=== PATIENT | male | born 1980 | race Caucasian/White ===

== ENCOUNTER 2021-07-26 09:01 | Emergency (ER) | payer MEDICAID, SELFPAY ==
[2021-07-26] VITALS (8 sets, daily range): BP systolic 154–161; BP diastolic 108–119; PULSE 107–120; RESP 12–21; TEMP 36.8; O2SAT 94–98
--- NOTE | 2021-07-26 09:00 | RT.EKG_ITS ---
APPROVED REPORT Exam: Resting ECG Reason for Exam: left arm pain Patient Location: E HR:109 bpm ECG Measurements Heart Rate 109 AXIS IL 165 P 54 QRSd 89 QRS -20 QT 314 T 33 QTc 423 Conclusion Sinus tachycardia...rate> 99 Inferior infarct, old...Q >35mS, II III aVF Consider anteroseptal infarct...Q >30mS, dimin R, V1-V2. Sinus. Inferior Q waves. No STEMI. I have reviewed and interpreted ECG and agree with software generated interpretation.
--- NOTE | 2021-07-26 09:16 | ED.GENADUL_ITS ---
Discharge Plan Disposition Patient Disposition: HOME Condition: Stable Discharge Details Clinical Impression: Cervical radiculopathy, Peripheral neuropathy Primary Care Provider: None,None ED Provider: Yudi Esquivel Home Meds and New Rx's Prescriptions: New prednisone 20 mg tablet See Rx Instructions .ROUTE .COMPLEX Qty: 18 RF: 0 methocarbamol 500 mg tablet 500 mg PO Q6H PRN (Reason: muscle spasm) Qty: 14 RF: 0 ibuprofen 600 mg tablet 600 mg PO Q6H PRNQty: 20 RF: 0 Discharge Instructions Instructions: Peripheral Neuropathy (ED), Cervical Radiculopathy (ED), Alcohol Use Disorder (ED) Additional Instructions: Apply ice to the affected area several times daily for 20 minutes at a time. Prescriptions for steroids, muscle relaxers and anti-inflammatories have been sent electronically to your pharmacy. You have been placed on care management list to arrange for a follow-up appoint ment with a primary care doctor to establish care, for recheck of your blood pressure, and for reevaluation of your neck arm pain. You can follow-up with orthopedics if your shoulder pain does not improve for further evaluation. You can talk to your doctor for referral to a head tennis coach or rehab if you would like assistance with stopping alcohol use safely. Return immediately to the emergency department if you develop any worsening or new concerning symptoms. Referrals: Von Treviño MD [ [facility] STAFF PHYSICIAN] - Discharge Data Discharge Date/Time-TO BE ENTERED AT DEPARTURE: 07/26/21 10:53 Discharge Physician: Yudi Esquivel Medical Decision Making 41-year-old male with a history of hypertension and daily alcohol use presents with pain overlying his left scapula, under his left arm with radiation down to his left hand with occasional associated tingling in left second through fourth fingers. Pain is worse with movement of his head and arm and when lying on his side. EKG done on arrival due to lack of reported injury and notes a rate of 109, sinus, inferior Q waves but no STEMI and nondiagnostic. 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 Pain in his left scapula, shoulder and arm are reproducible with movement of his head and arm abduction. Positive Spurling's test, Tinel's and Phalen sign. He is neurovascularly intact. Suspect this is most likely cervical radiculopathy or peripheral neuropathy. History and presentation does not appear c/w ACS, PE, dissection. Patient given a dose of IV Toradol and p.o. prednisone. Prescriptions for muscle laxatives and steroids sent electronically to his pharmacy. Patient also given orthopedic follow-up information. Patient placed on care management list to arrange for follow-up appointment with a PCP and to establish care. Usual and customary return precautions given prior to discharge. Medical Records Medical records reviewed: Yes I reviewed the patient's medical records. Lab Data Labs: ECG Data Attestation: I personally reviewed and interpreted this ECG (s) as follows: Interpretation: rate of 109, sinus, inferior Q waves, no stemi. OR 165, QRS 89, QTc 423. HPI General Mode of arrival: ambulatory . Date/Time Provider Initiated Documentation: 07/26/21 09:14 . Limitations to Documentation: no limitations . Information obtained by: patient . HPI Narrative: Patient is a 41-year-old male who presents with 1 week of left scapula, shoulder, upper arm, wrist and hand pain. He states the pain is worse with movement of his head and arm. He states he has increased pain when laying on his left or right side at night making it difficult to sleep. He states he does have some improvement when lying supine. 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 He does admit to intermittent tingling in his second through fourth fingers. He denies any significant neck pain, fever, cough, chest pain, shortness of breath, abdominal pain, nausea, vomiting or dizziness. He is a daily drinker and can drink between 2-12 beers daily. Related Data Home Medications Medication Instructions Recorded Confirmed ibuprofen 600 mg PO Q6H PRN #20 tab 07/26/21 methocarbamol 500 mg PO Q6H PRN #14 tab 07/26/21 prednisone See Rx Instructions .ROUTE 07/26/21 .COMPLEX #18 tab Previous Rx's Medication Instructions Recorded ibuprofen 600 mg PO Q6H PRN #20 tab 07/26/21 methocarbamol 500 mg PO Q6H PRN #14 tab 07/26/21 prednisone See Rx Instructions .ROUTE 07/26/21 .COMPLEX #18 tab Allergies Allergy/AdvReac Type Severity Reaction Status Date / Time No Known Allergies Allergy Unverified 07/26/21 09:14 General Stated Complaint: GenMedical IVON: 2 Review of Systems All systems reviewed & are unremarkable except as noted in HPI and below Constitutional Constitutional: Reports as per HPI, Denies chills and Denies fever(s) Eyes Eyes: Denies blurry vision ENT Ears, Nose, Mouth, and Throat: Denies dizziness, Denies sore throat and Denies throat swelling Cardiovascular Cardiovascular: Denies chest pain and Denies dyspnea Respiratory Respiratory: Denies cough and Denies dyspnea Gastrointestinal Gastrointestinal: Denies abdominal pain, Denies diarrhea and Denies vomiting Genitourinary Genitourinary: Denies hematuria and Denies dysuria Musculoskeletal Musculoskeletal: Denies back pain and Denies numbness Comments: L scapula, upper arm pain, wrist pain Integumentary/Breasts Skin/Breast: Denies lesions and Denies rash Neurologic Neurologic: Denies dizziness, Denies localized weakness and Denies numbness Allergic/Immunologic Allergic/Immunologic: Denies throat swelling PFS Active Problem List (Updated 07/26/21 @ 10:29 by Yudi Esquivel DO) Cervical radiculopathy (Acute) Peripheral neuropathy (Acute) Medical History (Updated 07/26/21 @ 10:29 by Yudi Esquivel DO) HTN (hypertension) Surgical History (Updated 07/26/21 @ 10:06 by Yudi Esquivel DO) No significant past surgical history Social History Smoking/Tobacco Use Status: Never Smoking risk assessment performed?: Yes Drug use: Daily Substance use type: marijuana Exam Const General: cooperative and no acute distress HENMT Head: normal to inspection Face and sinus: normal facial exam Eyes General: appearance normal, both eyes and all related structures EOM: EOM intact bilaterally Neck Neck: normal visual inspection and No submandibular swelling Lymphatic: no lymphadenopathy noted Chest Chest: normal inspection of the chest and no tenderness Resp Effort & Inspection: normal respiratory effort and able to speak in complete sentences Auscultation: clear to auscultation bilaterally Cardio Rate: regular rate Rhythm: regular rhythm GI Inspection: normal to inspection Palpation: soft, not firm, not rigid and nontender Auscultation: normal bowel sounds Back/Spine/Pelvis Thoracic/Lumbar Spine: thoracic and lumbar spine normal to inspection Skin General skin exam: no rashes or lesions noted Neuro General: patient alert, patient awake and patient oriented x3 Cognition: normal cognition Speech: speech normal Motor: muscle tone normal throughout Sensory Exam: no sensory deficits noted Extrem General: normal to inspection, full ROM, capillary refill normal, no calf tenderness bilaterally and no edema Other: Pain in left scapula and upper arm reproducible with left head movement and abduction of his arm. There is no tenderness overlying scapula or left shoulder, upper arm, elbow, forearm or wrist Positive Spurling's test. Negative Tinel's and Phalen's sign. Left radial and ulnar pulses intact. Normal motor/sensory nerve function along the radial/median and ulnar nerve distribution. Psych Appearance: grossly normal Mental Status: mental status grossly normal Speech and Movement: speech and movement normal Affect: normal affect Course Vital Signs Vital signs: Vital Signs Temperature 98.2 F 07/26/21 09:09 Pulse 109 H 07/26/21 09:09 Respiratory Rate 16 07/26/21 09:09 Blood Pressure 157/119 H 07/26/21 09:09 Pulse Oximetry 98 07/26/21 09:09 Temperature 98.2 F 07/26/21 09:09 Temperature Source Skin 07/26/21 09:09 Pulse 109 H 07/26/21 09:09 Respiratory Rate 16 07/26/21 09:09 Respiratory Effort Non-Labored 07/26/21 09:09 Blood Pressure 157/119 H 07/26/21 09:09 Blood Pressure Position Supine 07/26/21 09:09 Pulse Oximetry 98 07/26/21 09:09 Oxygen Delivery Method Room Air 07/26/21 09:09 Oxygen Flow Rate 0 07/26/21 09:09 Pain Level 2 07/26/21 09:09 PAWSS Have you Been Recently Intoxicated or Drunk Within the Last 30 days?: No Have you Ever Experienced Previous Episodes of Alcohol Withdrawal?: No Have you ever Experienced Withdrawal Seizures?: No Have you ever Experienced Delirium Tremens(DT)s?: No Have you ever undergone Alcohol Rehabilitation Treatment (i.e, inpt ot outpatient treatment programs)?: No Have you ever Experienced Blackouts?: No Have you ever Combined Alcohol with other Downers within the last 90 days?: No Have you ever Combined Alcohol with any other Substance of Abuse during the last 90 days?: No Positive Blood Alcohol level on Presentation? [PCS.BAL]: No Result: 0
[2021-07-26] MEDS: Ketorolac 60 MG/2 ML VIAL IM (10:02)
[2021-07-26] MEDS: predniSONE 20 MG TAB 60 MG PO (10:02)
--- NOTE | 2021-07-26 10:28 | NUR.NOTE ---
Nursing Note: Referral given to Care Management for follow up shoulder pain, establish care within 1 week. Darlene Moreno
--- NOTE | 2021-07-27 09:23 | NUR.NOTE ---
Nursing Note: Referral given to Care Management for arm pain, establish care with new PCP within 1 week. Darlene Moreno
--- NOTE | 2021-07-27 11:24 | CMACTNOTE_ITS ---
- If Service Date Differs Date of service: 07/27/21 Time of Service: 11:24 Care Management Activity Note Nadir is seen in the ED for cervical radiculopathy. At the request of ED provider, TOMI coordinates a referral to Carrington Vogel MD, of [facility], on-call provider, to assist Nadir in obtaining a follow up appointment and in establishing care with a PCP.
== END 2021-07-26 10:53 | disposition home or self-care (01) ==
PROVIDERS: Emergency Provider Physician Assistant
DX: M54.12 Radiculopathy, cervical region (principal); G62.9 Polyneuropathy, unspecified; M79.602 Pain in left arm
CPT/HCPCS: 36415; 93005; 96372; 99284; 93010; 99283; J1885; J7512

== ENCOUNTER 2022-01-27 16:31 | Emergency (ER) | payer MEDICAID, SELFPAY ==
[2022-01-27] VITALS (61 sets, daily range): BP systolic 134–162; BP diastolic 98–115; PULSE 90–106; RESP 16; TEMP 36.8; O2SAT 92–99
--- NOTE | 2022-01-27 17:15 | RT.EKG_ITS ---
APPROVED REPORT Exam: Resting ECG Reason for Exam: tachy Patient Location: E HR:104 bpm ECG Measurements Heart Rate 104 AXIS [place] 175 P 49 QRSd 96 QRS -30 QT 359 T 27 QTc 473 Conclusion Sinus tachycardia...rate> 99 Inferior infarct, old...Q >35mS, II III aVF Anterior infarct, old...Q >40mS, abnormal ST-T, V2-V5. Sinus. No STEMI. I have reviewed and interpreted ECG and agree with software generated interpretation.
[2022-01-27] MEDS: chlordiazePOXIDE 25 MG CAP 50 MG PO ×2 (17:55→19:50)
[2022-01-27 17:57] LABS: Abs Immature Grans 0.03 10^3/uL (0.0-0.06); Absolute Basophil Count 0.06 10^3/uL (0.0-0.2); Absolute Eosinophil Count 0.02 10^3/uL (0.0-0.7); Absolute Lymphocyte Count 0.88 10^3/uL (1.2-3.4); Absolute Monocyte Count 0.75 10^3/uL (0.1-0.8); Absolute Neutrophil Count 3.81 10^3/uL (1.2-6.7); Basophils % 1.1; Eosinophils % 0.4; HCT 45.9 % (40.0-50.0); HGB 16.2 g/dL (13.5-17.5); Immature Grans % 0.5; Lymphocytes % 15.9; MCH 31.1 pg (27.0-33.0); MCHC 35.3 % (32.0-36.0); MCV 88 fL (80-95); MPV 9.1 fL (8.0-11.0); Monocytes % 13.5; Neutrophils % 68.6; Platelet Count 188 10^3/uL (130-400); RBC 5.21 10^6/uL (4.36-5.78); RDW 11.1 % (11.8-14.1); RDW-SD 35.6 fL; WBC 5.55 10^3/uL (4.4-10.8)
[2022-01-27 18:12] LABS: ALT 125 U/L (16-63); AST 96 U/L (15-37); Albumin 4.1 g/dL (3.4-5.0); Alkaline Phosphatase 67 U/L (46-116); Anion Gap 9.6 mmol/L (3-11); BUN 7 mg/dL (7-18); Bilirubin, Total 1.4 mg/dL (0.2-1.0); CO2 27.4 mmol/L (21.0-32.0); Calcium 9.4 mg/dL (8.5-10.1); Chloride 96 mmol/L (98-107); Glucose 105 mg/dL (74-106); Lipase 237 U/L (73-393); Magnesium 2.5 mg/dL (1.8-2.4); Potassium 3.7 mmol/L (3.5-5.1); Sodium 133 mmol/L (136-145); Total Protein 8.2 g/dL (6.4-8.2)
[2022-01-27 18:26] LABS: ETHANOL BLOOD < 3.0 mg/dL (<10)
[2022-01-27] MEDS: Normal Saline 1,000 ML 1000 ML IV (18:40)
--- NOTE | 2022-01-27 19:22 | W.ED.GENAD ---
Discharge Plan Disposition Patient Disposition: HOME Condition: Stable Discharge Details Clinical Impression: Alcohol abuse, Elevated transaminase level, Alcohol withdrawal syndrome Primary Care Provider: None,None ED Provider: Mattie Palmer Home Meds and New Rx's Prescriptions: New chlordiazepoxide HCl 25 mg capsule 25 mg PO .q6p PRN (Reason: alcohol withdrawal) Qty: 16 0RF Discharge Instructions Instructions: Abuse of Alcohol (ED) Additional Instructions: Take the Librium, 25 to 50 mg as needed for alcohol withdrawal Do not combine alcohol with Librium this can make you very sick He should not drive your vehicle for 8 hours after taking this medication Please call your doctor and let them know that you are attempting alcohol cessation Am attaching information for [facility] Please return immediately should he have new or worsening symptoms Referrals: [facility] [Outside] Discharge Data Discharge Date/Time-TO BE ENTERED AT DEPARTURE: 01/27/22 19:49 Medical Decision Making Patient is alert and oriented, his CIWA score is 10 he is comfortable in the room and has an excellent support system including his His preference is to be discharged home on anxiolysis for alcohol withdrawal To the recovery was involved and will call him tomorrow His labs are reviewed including mild elevation in his LFTs He is in no discomfort We discussed admission versus discharge home and I do not think it is unreasonable to do a trial of outpatient alcohol withdrawal treatment I will place patient on care management list to establish care with PCP No suicidal or homicidal ideation Medical Records Medical records reviewed: Yes I reviewed the patient's medical records. Lab Data Lab results reviewed: Yes I reviewed the patient's lab results. HPI General Date/Time Provider Initiated Documentation: 01/27/22 16:35. HPI Narrative: This 41-year-old male presents for report of concern for alcohol withdrawal. Patient states that his last drink was approximately 48 hours ago. He typically consumes between 10-12 8 ounce beers daily. He states he has been doing this for the past 20 years. Denies prior cessation of alcohol in the past. States he is like to stop drinking. He has not had a drink since 48 hours ago. He today he was concerned because he was quite anxious and had auditory hallucinations with pink slip playing in the background at 3:00. Patient denies any chest pain or shortness of breath. He denies any dizziness or weakness. He denies any nausea or vomiting. He feels slightly tremulous. Denies history of seizures in the past. Denies any calf pain or swelling. Denies any current auditory or visual hallucinations. Has strong support system with a friend who will sponsor him. Denies any additional illicit drug use. Denies chest pain or shortness of breath. Denies suicidal or homicidal ideation. Related Data Home Medications Medication Instructions Recorded Confirmed chlordiazepoxide HCl 25 mg capsule 25 mg PO .q6p PRN alcohol 01/27/22 withdrawal #16 caps Previous Rx's Medication Instructions Recorded chlordiazepoxide HCl 25 mg capsule 25 mg PO .q6p PRN alcohol 01/27/22 withdrawal #16 caps Allergies Allergy/AdvReac Type Severity Reaction Status Date / Time No Known Allergies Allergy Unverified 01/27/22 16:40 General Stated Complaint: ETOHWithdr IVON: 3 Review of Systems All systems reviewed & are unremarkable except as noted in HPI and below PFSH All Active Problems (Updated 01/27/22 @ 21:43 by FIGUEROA Moore) Cervical radiculopathy (Acute) Peripheral neuropathy (Acute) Alcohol abuse (Chronic) Elevated transaminase level (Acute) Alcohol withdrawal syndrome (Acute) Medical History (Updated 01/27/22 @ 21:43 by FIGUEROA Moore) HTN (hypertension) Surgical History (Updated 07/26/21 @ 10:06 by Yudi Esquivel DO) No significant past surgical history Social History Smoking/Tobacco Use Status: Never Smoking risk assessment performed?: Yes Alcohol Intake: former Drug use: Daily Substance use type: marijuana Details: pt starting detoxing from alochol 50 hours ago Do you feel safe at home: Yes Do you feel safe in your relationship?: Yes Exam Const General: cooperative, comfortable and no acute distress Orientation: alert and oriented x3 HENMT Head: normal to inspection Other: no tongue fasciculations no visible evidence of trauma Eyes Pupils: PERRL EOM: No nystagmus Resp Effort & Inspection: normal respiratory effort Auscultation: clear to auscultation bilaterally Cardio Rate: tachycardic Rhythm: regular rhythm GI Other: Nontender abdominal exam Skin General skin exam: no rashes or lesions noted Neuro General: patient alert and patient oriented x3 Cranial Nerves: tongue midline and no nystagmus Other: Mild tremor noted Psych Appearance: well kempt Mental Status: mental status grossly normal Speech and Movement: speech and movement normal Affect: normal affect Attitude: cooperative Thought Process: normal Thought Content: normal Course Vital Signs Vital signs: Vital Signs Temperature 36.8 C 01/27/22 16:33 Pulse 103 H 01/27/22 16:33 Respiratory Rate 16 01/27/22 16:33 Blood Pressure 162/115 H 01/27/22 16:33 Pulse Oximetry 96 01/27/22 16:33 Temperature 36.8 C 01/27/22 16:33 Pulse 90 01/27/22 19:16 Respiratory Rate 16 01/27/22 16:33 Respiratory Effort 01/27/22 16:41 Respiratory Pattern Normal 01/27/22 16:41 Blood Pressure 149/99 H 01/27/22 19:16 Pulse Oximetry 93 01/27/22 18:54 Oxygen Delivery Method Room Air 01/27/22 17:54 Oxygen Flow Rate 0 01/27/22 17:54 Lab/Test Results Lab/Test Results: Laboratory Tests Range/Units 01/27/22 01/27/22 17:51 17:51 WBC (4.4-10.8) 10^3/uL 5.55 RBC (4.36-5.78) 10^6/uL 5.21 Hgb (13.5-17.5) g/dL 16.2 Hct (40.0-50.0) % 45.9 MCV (80-95) fL 88 MCH (27.0-33.0) pg 31.1 MCHC (32.0-36.0) % 35.3 RDW (11.8-14.1) % 11.1 L Plt Count (130-400) 10^3/uL 188 MPV (8.0-11.0) fL 9.1 Immature Gran % 0.5 Neutrophils % 68.6 Lymphocytes % 15.9 Monocytes % 13.5 Eosinophils % 0.4 Basophils % 1.1 Nucleated RBC % (0.0-0.3) % 0.0 Absolute Neutrophils (1.2-6.7) 10^3/uL 3.81 Absolute Lymphocytes (1.2-3.4) 10^3/uL 0.88 L Absolute Monocytes (0.1-0.8) 10^3/uL 0.75 Absolute Eosinophils (0.0-0.7) 10^3/uL 0.02 Absolute Basophils (0.0-0.2) 10^3/uL 0.06 Sodium (136-145) mmol/L 133 L Potassium (3.5-5.1) mmol/L 3.7 Chloride (98-107) mmol/L 96 L Carbon Dioxide (21.0-32.0) mmol/L 27.4 Anion Gap (3-11) mmol/L 9.6 BUN (7-18) mg/dL 7 Creatinine (0.70-1.30) mg/dL 1.0 Estimated GFR/1.73 m2 (mL/min/1.73m2) >= 60.00 Glucose (74-106) mg/dL 105 Calcium (8.5-10.1) mg/dL 9.4 Magnesium (1.8-2.4) mg/dL 2.5 H Total Bilirubin (0.2-1.0) mg/dL 1.4 H AST (15-37) U/L 96 H ALT (16-63) U/L 125 H Alkaline Phosphatase (46-116) U/L 67 Total Protein (6.4-8.2) g/dL 8.2 Albumin (3.4-5.0) g/dL 4.1 Lipase (73-393) U/L 237 Ethyl Alcohol (<10) mg/dL < 3.0 PAWSS Pt Consumed Any Amount of Alcohol Within the Last 30 days OR had positive MARIELOS Upon Admission: Yes Have you Been Recently Intoxicated or Drunk Within the Last 30 days?: No Have you Ever Experienced Previous Episodes of Alcohol Withdrawal?: No Have you ever Experienced Withdrawal Seizures?: No Have you ever Experienced Delirium Tremens(DT)s?: No Have you ever undergone Alcohol Rehabilitation Treatment (i.e, inpt ot outpatient treatment programs)?: No Have you ever Experienced Blackouts?: No Have you ever Combined Alcohol with other Downers within the last 90 days?: No Have you ever Combined Alcohol with any other Substance of Abuse during the last 90 days?: No Positive Blood Alcohol level on Presentation? [PCS.BAL]: No Evidence of Increased Autonomic Activity (i.e. HR>120, tremor, sweating, agitation, nausea)?: Yes Result: 1
--- NOTE | 2022-01-27 22:12 | NUR.NOTE ---
Referral to Care Management to establish pcp routinely.Nursing Note:
== END 2022-01-27 19:49 | disposition home or self-care (01) ==
PROVIDERS: Emergency Provider Physician Assistant
DX: F10.239 Alcohol dependence with withdrawal, unspecified (principal); R74.01 Elevation of levels of liver transaminase levels; I10 Essential (primary) hypertension
CPT/HCPCS: 80053; 83690; 93005; 96360; 99284; 80320; 83605; 83735; 85025; 93010; 99283

== ENCOUNTER 2023-02-01 10:58 | Emergency (ER) | payer MEDICAID, SELFPAY ==
[2023-02-01 11:04] VITALS: BP 141/95; PULSE 68; RESP 15; TEMP 36.5; O2SAT 99
--- NOTE | 2023-02-01 11:15 | DI.RAD_ITS ---
Exam(s) XR RIBS RT W PA LAT CHEST EXAM: XR RIBS RT W PA LAT CHEST CLINICAL HISTORY: fall from height TECHNIQUE: 2D digital imaging was performed. COMPARISON: No exams were available for comparison FINDINGS: Total 7 views: RIBS 5 VIEWS- there are no obvious right rib fractures There are no obvious acute rib fractures evident. No lytic rib lesions identified. CXR- 2 VIEWS: No lung contusion or pneumothorax. There is no pleural effusion evident. Heart size is normal and there is no significant mediastinal widening. IMPRESSION: 1. No obvious right rib fractures evident. Also no significant rib lesions. 2. No ipsilateral lung nor pleural abnormality evident. No pneumothorax. DATA REPOSITORY: RADIATION DOSE DELIVERED:
--- NOTE | 2023-02-01 11:15 | DI.RAD_ITS ---
Exam(s) XR HIP RT COMPLETE AP PELVIS EXAM: XR HIP RT COMPLETE AP PELVIS CLINICAL HISTORY: fall from height. TECHNIQUE: 2D digital imaging was performed. COMPARISON: No exams were available for comparison FINDINGS: Two views. No evidence of pelvic nor hip fracture. Mild degenerative changes in the right hip noted. Bone dens ity normal. No osseous lesions. IMPRESSION: No fracture evident. DATA REPOSITORY: RADIATION DOSE DELIVERED:
--- NOTE | 2023-02-01 11:25 | DI.RAD_ITS ---
Exam(s) XR CERVICAL SP MONTALVO TRAUMA 2-3V EXAM: XR CERVICAL SP MONTALVO TRAUMA 2-3V CLINICAL HISTORY: fall from height. TECHNIQUE: 2D digital imaging was performed. COMPARISON: No exams were available for comparison FINDINGS: 3 views No evidence of fracture, listhesis, nor offset of the spinal laminar line. No cervical ribs. No sig nificant disc space narrowing. Facets unremarkable. No prevertebral soft tissue swelling. Bone den sity normal. No osseous lesions IMPRESSION: No significant radiograph findings on these three views of the cervical spine. DATA REPOSITORY: RADIATION DOSE DELIVERED:
--- NOTE | 2023-02-01 12:13 | DI.RAD_ITS ---
Exam(s) XR WRIST RT COMPLETE EXAM: XR WRIST RT COMPLETE CLINICAL HISTORY: fall trauma. TECHNIQUE: 2D digital imaging was performed. COMPARISON: No exams were available for comparison FINDINGS: 3 views There appears to be a subtle fracture line in the distal radius at its medial border, at the level th e radiocarpal joint. No other fractures identified in the distal radius and ulna and ulnar styloid i s intact. No significant ulnar variance. Scaphoid and scapholunate distance are normal. IMPRESSION: Subtle nondisplaced fracture at the distal medial radius. DATA REPOSITORY: RADIATION DOSE DELIVERED:
--- NOTE | 2023-02-01 12:15 | DI.RAD_ITS ---
Exam(s) XR THORACIC SPINE COMPLETE EXAM: XR THORACIC SPINE COMPLETE CLINICAL HISTORY: fall from height. TECHNIQUE: 2D digital imaging was performed. COMPARISON: No exams were available for comparison FINDINGS: 3 views No evidence of obvious compression fracture or listhesis. Mild disc space narrowing at T7-8 level noted. There is no abnormal widening of the paraspinal lines . No scoliosis. IMPRESSION: No fractures evident. DATA REPOSITORY: RADIATION DOSE DELIVERED:
--- NOTE | 2023-02-01 12:15 | ED.GENADUL_ITS ---
Discharge Plan Disposition Patient Disposition: Home Discharge Details Clinical Impression: Distal radial fracture, Chest wall contusion, Contusion of right shoulder, Contusion of hip, right Primary Care Provider: Unknown,Unknown ED Provider: Justino Pierre Home Meds and New Rx's Prescriptions: Discontinued chlordiazepoxide HCl 25 mg capsule 25 mg PO .q6p PRN (Reason: alcohol withdrawal) Qty: 16 0RF Patient Comments: No longer taking 02/01/23 CT Discharge Instructions Instructions: Wrist Fracture in Adults (ED) Referrals: Von Treviño MD [ [facility] STAFF PHYSICIAN] - Discharge Data Discharge Date/Time-TO BE ENTERED AT DEPARTURE: 02/01/23 13:01 Medical Decision Making Patient with moderate energy mechanism trauma. Now with an obvious deformity to the right wrist likely broken. No significant head injury is evident in the patient's not on blood thinners GCS is 15 CT scan not indicated. Will obtain plain film imaging of the other areas of pain to rule out fracture dislocations although unlikely. Rib fracture is possible. Will reassess after plain films have been performed Differential Diagnosis Differential Diagnosis: Wrist fracture/rib fracture HPI General Date/Time Provider Initiated Documentation: 02/01/23 11:22 . HPI Narrative: Patient had a mechanical fall from ladder onto his right side no head injury. Presents emergency department complaining of center neck pain center back pain and right shoulder pain right wrist pain and right hip pain. No loss of consciousness patient's not on blood thinners. This occurred just prior to arrival. Patient states he has significant pain of the left wrist with difficulty flexion and extension. He ambulated to the emergency department under his own power. No open wounds no lacerations Related Data Allergies Allergy/AdvReac Type Severity Reaction Status Date / Time No Known Allergies Allergy Unverified 02/01/23 11:08 General Stated Complaint: Trauma IVON: 3 Review of Systems Narrative: CONST: Negative for fever, body aches and chills. HENT: Negative headache, congestion, sore throat, swelling. EYES: Negative for discharge/pain or vision changes. RESP: Negative for cough/hemoptysis and shortness of breath. CV: Negative chest pain, difficulty breathing, palpitations. ABD: Negative pain, nausea, vomiting. : Negative increase frequency, dysuria, blood in urine or stool. MUSC: Negative for muscle aches, edema. SKIN: Negative rash, lesions/sores. NEURO: Negative headache, dizziness, weakness. PFSH All Active Problems (Updated 02/01/23 @ 12:49 by Justino Pierre MD) Cervical radiculopathy (Acute) Peripheral neuropathy (Acute) Distal radial fracture (Acute) Chest wall contusion (Acute) Contusion of right shoulder (Acute) Contusion of hip, right (Acute) Medical History (Updated 02/01/23 @ 12:49 by Justino Pierre MD) HTN (hypertension) Surgical History (Updated 07/26/21 @ 10:06 by Yudi Esquivel DO) No significant past surgical history Social History Smoking/Tobacco Use Status: Never Smoking risk assessment performed?: Yes Alcohol Intake: former Drug use: Daily Substance use type: marijuana Details: 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 EYES lids/conjunctiva normal. EARS/NOSE/THROAT Mucous membranes moist, nares normal, lips/teeth normal uvula midline without oral pharyngeal erythema, exudate or swelling No lymphangitis/lymphedema. HEAD/NECK normocephalic atraumatic, no facial trauma, neck is supple. Mild tenderness to palpation over C6-C7 RESPIRATORY respiratory effort normal, speaks in full sentences, no tripod position, no accessory muscle use. Lungs clear to auscultation without rhonchi, wheezes, rales CARDIAC Regular rate and rhythm, no edema. ABDOMINAL Soft, ND/NT. No evidence of fluid wave. No pulsatile masses on exam, rebound tenderness, Tran sign or pain over Mcburney's point. MUSCLES/EXTREMITIES tenderness over the right lateral shoulder right lateral rib cage tenderness and deformity to the right wrist and tenderness to palpation but no deformity over the right hip SKIN Warm, pink and dry. No rashes, dermatoses, petechiae or lesions. NEUROLOGICAL Speech is clear and appropriate. Normal level of consciousness. Gait and coordination are normal. 5/5 strength in all extremities. PSYCH Normal mood and affect. Judgement/competence is appropriate Course Reevaluation(s) Time: 12:47 Reevaluation: Patient immobilized with a Velcro wrist splint. At the bedside tried on the patient to see if he had good results with this and it was sufficient to minimize pain and mobilize movement. Instructed the patient to not utilize the right hand for anything more than very fine movements are detail. Subtle nondisplaced distal radius fracture appears nonsurgical we will have patient follow-up with orthopedic surgery for definitive management. Patient does not smoke cigarettes he understands the need to use cryotherapy and elevate the injured wrist. In regards to his other injuries no obvious fractures do not suspect internal organ injury instructed the patient to return the emergency department if any of his injury sites are not improving markedly after 48 to 72 hours and he understood.. Vital Signs Vital signs: Vital Signs Temperature 36.5 C 02/01/23 11:04 Pulse 68 02/01/23 11:04 Respiratory Rate 15 02/01/23 11:04 Blood Pressure 141/95 H 02/01/23 11:04 Pulse Oximetry 99 02/01/23 11:04 Temperature 36.5 C 02/01/23 11:04 Temperature Source Oral 02/01/23 11:04 Pulse 68 02/01/23 11:04 Respiratory Rate 15 02/01/23 11:04 Respiratory Effort Normal 02/01/23 11:16 Respiratory Depth Normal 02/01/23 11:16 Respiratory Pattern Normal 02/01/23 11:16 Blood Pressure 141/95 H 02/01/23 11:04 Blood Pressure Position Sitting 02/01/23 11:04 Pulse Oximetry 99 02/01/23 11:04 Oxygen Delivery Method Room Air 02/01/23 11:04 Oxygen Flow Rate 0 02/01/23 11:04 Pain Level 3 02/01/23 11:04
[2023-02-01] MEDS: Ibuprofen 600 MG TAB PO (12:52)
== END 2023-02-01 13:01 | disposition home or self-care (01) ==
PROVIDERS: Emergency Provider Emergency Medicine
DX: S52.591A Other fractures of lower end of right radius, initial encounter for closed fracture (principal); W11.XXXA Fall on and from ladder, initial encounter; S20.214A Contusion of middle front wall of thorax, initial encounter; S40.011A Contusion of right shoulder, initial encounter; S70.01XA Contusion of right hip, initial encounter
CPT/HCPCS: 29125; 99284; 71046; 71100; 72040; 72072; 73110; 73502

== ENCOUNTER 2023-02-16 14:41 | Outpatient (CLI) | payer MEDICAID, SELFPAY ==
--- NOTE | 2023-02-16 14:30 | DI.RAD_ITS ---
Exam(s) XR WRIST RT COMPLETE EXAM: XR WRIST RT COMPLETE INDICATION: F/U FRACTURE. COMPARISON: CR XR WRIST RT COMPLETE from 02/01/2023 TECHNIQUE: 2D digital imaging was performed. Two views. FINDINGS: There has been no change in the alignment of the fracture at the medial aspect of the distal radius. New abnormalities. DATA REPOSITORY: RADIATION DOSE DELIVERED:
== END 2023-02-16 14:42 | disposition home or self-care (01) ==
LOC: DIORS 14:41
PROVIDERS: Visit Provider Physician Assistant
DX: Z47.89 Encounter for other orthopedic aftercare (principal); S52.591D Other fractures of lower end of right radius, subsequent encounter for closed fracture with routine healing; X58.XXXD Exposure to other specified factors, subsequent encounter
CPT/HCPCS: 73110

== ENCOUNTER 2023-03-24 08:54 | Outpatient (CLI) | payer MEDICAID, SELFPAY ==
--- NOTE | 2023-03-24 09:07 | DI.RAD_ITS ---
Exam(s) XR WRIST RT COMPLETE EXAM: XR WRIST RT COMPLETE CLINICAL HISTORY: F/U R WRIST FX. TECHNIQUE: 2D digital imaging was performed. COMPARISON: CR XR WRIST RT COMPLETE from 02/16/2023 FINDINGS: 3 views Fracture line in medial aspect of the distal radius appears unchanged. No significant ulnar variance evident. No osseous lesions. IMPRESSION: Stable appearance without significant change from 02/16/2023. DATA REPOSITORY: RADIATION DOSE DELIVERED:
== END 2023-03-24 08:55 | disposition home or self-care (01) ==
LOC: DIORS 08:54
PROVIDERS: Visit Provider Student in an Organized Health Care Education/Training Program
DX: S52.591D Other fractures of lower end of right radius, subsequent encounter for closed fracture with routine healing (principal); X58.XXXD Exposure to other specified factors, subsequent encounter
CPT/HCPCS: 73110

== ENCOUNTER 2023-05-05 09:43 | Outpatient (CLI) | payer MEDICAID, SELFPAY ==
--- NOTE | 2023-05-05 09:50 | DI.RAD_ITS ---
Exam(s) XR WRIST RT COMPLETE EXAM: XR WRIST RT COMPLETE CLINICAL HISTORY: R wrist fx. TECHNIQUE: 2D digital imaging was performed. Three views. COMPARISON: CR XR WRIST RT COMPLETE from 02/01/2023 CR XR WRIST RT COMPLETE from 02/16/2023 CR XR WRIST RT COMPLETE from 03/24/2023 FINDINGS: The intra-articular fracture at the medial aspect of the distal radius remains visible, minimal separ ation. DATA REPOSITORY: RADIATION DOSE DELIVERED:
== END 2023-05-05 09:44 | disposition home or self-care (01) ==
LOC: DIORS 09:43
PROVIDERS: Visit Provider Physician Assistant
DX: S52.591D Other fractures of lower end of right radius, subsequent encounter for closed fracture with routine healing (principal); X58.XXXD Exposure to other specified factors, subsequent encounter
CPT/HCPCS: 73110